=== PATIENT | male | born 1960 | race Caucasian/White ===

== ENCOUNTER 2017-11-02 12:54 | Inpatient (IN) | payer OTHER ==
[~2017-11-02] VITALS: Ht 182.9 cm; Wt 72.2 kg
[2017-11-02 13:46] LABS: BASOPHILS ABSOLUTE AUTO 0.06 K/mm3 (0.00-0.23); BASOPHILS PERCENT AUTO 1 % (0-2); EOSINOPHILS ABSOLUTE AUTO 0.05 K/mm3 (0.00-0.68); EOSINOPHILS PERCENT AUTO 1 % (0-6); Hematocrit 45.4 % (37.0-53.0); Hemoglobin 15.4 g/dL (13.5-17.5); IMMATURE GRAN ABSOLUTE AUTO 0.03 K/mm3 (0.00-0.10); IMMATURE GRAN PERCENT AUTO 0 % (0-1); LYMPHOCYTES ABSOLUTE AUTO 2.51 K/mm3 (0.84-5.20); LYMPHOCYTES PERCENT AUTO 25 % (21-46); MONOCYTES ABSOLUTE AUTO 1.04 K/mm3 (0.16-1.47); MONOCYTES PERCENT AUTO 11 % (4-13); Mean Corpuscular HGB 33.3 pg (26.0-34.0); Mean Corpuscular HGB Conc 33.9 g/dL (31.5-36.5); Mean Corpuscular Volume 98 fL (80-100); Mean Platelet Volume 9.8 fL (9.1-12.4); NEUTROPHILS ABSOLUTE AUTO 6.21 K/mm3 (1.96-9.15); NEUTROPHILS PERCENT AUTO 63 % (41-73); Platelet Count 359 K/mm3 (150-400); RDW Coefficient Variation 11.9 % (11.7-14.2); RDW Standard Deviation 43.6 fL (35.1-46.3); Red Blood Cell Count 4.63 M/mm3 (4.30-5.90)
[2017-11-02 13:58] LABS: Alanine Aminotransfer (ALT/SGP 20 U/L (12-78); Albumin, Blood 3.5 g/dL (3.4-5.0); Albumin/Globulin Ratio 0.6 (0.8-1.8); Alk Phos 114 U/L (50-136); Anion Gap 13 mmol/L (6-16); Aspartate Aminotrans (AST/SGOT 30 U/L (12-37); Bilirubin, Total 1.1 mg/dL (0.1-1.0); Blood Urea Nitrogen 22 mg/dL (8-24); Bun/Creatinine Ratio 28.6 (12.0-20.0); CO2, Blood 31 mmol/L (21-32); Calcium, Blood 9.1 mg/dL (8.5-10.1); Chloride, Blood 95 mmol/L (98-108); Creatinine, Blood 0.77 mg/dL (0.60-1.20); Globulin, Blood 5.5 g/dL (2.2-4.0); Glomerular Filtration Rate >60 (60-); Glucose, Blood 102 mg/dL (70-99); Potassium, Blood 2.6 mmol/L (3.5-5.5); Sodium, Blood 139 mmol/L (136-145)
[2017-11-02 14:32] LABS: Magnesium, Blood 1.8 mg/dL (1.6-2.4)
== END 2017-11-02 20:15 | disposition left against medical advice (07) | DRG 607 ==
LOC: ER 12:54 → MEDS 12:55
PROVIDERS: Emergency Medicine
DX: R22.1 Localized swelling, mass and lump, neck (principal); E87.6 Hypokalemia; E86.0 Dehydration; Z90.89 Acquired absence of other organs; F17.210 Nicotine dependence, cigarettes, uncomplicated; F10.20 Alcohol dependence, uncomplicated; R63.8 Other symptoms and signs concerning food and fluid intake
CPT/HCPCS: 36415; 70491; 80053; 83735; 84132; 85025; 93005; 93010; J2060; J3480; J7030; Q9967

== ENCOUNTER 2018-08-31 00:13 | Day surgery (SDC) | payer OTHER ==
[2018-08-31] MEDS ORDERED: DEXA4 PO (09:27)
[2018-08-31] MEDS ORDERED: HYDMOR2 PO (09:28)
[2018-08-31] MEDS ORDERED: FENT50TP TOP (09:31)
[2018-08-31] MEDS ORDERED: ONDA8 SL (09:32)
== END 2018-08-31 09:22 | disposition home or self-care (01) ==
LOC: ATC 00:13
DX: Z45.2 Encounter for adjustment and management of vascular access device (principal)
CPT/HCPCS: 96523; J1642